=== PATIENT | female | born 1960 | race Caucasian/White ===

== ENCOUNTER 2016-09-07 07:40 | Inpatient (IN) ==
[~2016-09-07 07:40] MED LIST: ACETAMINOPHEN 500 MG TABLET PO ONE; CEFAZOLIN 1 G INJECTION IVP ONE; DEXAMETHASONE 4 MG/ML INJECTION IVP ONE; FAMOTIDINE PB 20 MG/50 ML BAG IV ONE; LIDOCAINE 1% (10mg/ml) 10mL MDV SQ ONE; MELOXICAM 15 MG TABLET PO ONE; METOCLOPRAMIDE 10mg/2ml INJECTION IVP ONE; NOZIN NASAL SWAB NAS ONE; ONDANSETRON 4 MG/2 ML INJECTION IVP ONE; TRANEXAMIC ACID 1,000 MG in NS 100 ML IV ONE; VANCOMYCIN 1,000 MG INJECTION ONE
[2016-09-07] MEDS ORDERED: EPINEPHrine 0.25 MG, BUPIVACAINE 0.25% PF 30 ML, MORPHINE SULFATE 15 MG, KETOROLAC INJ ... OPSITE ONE (08:00)
[2016-09-07] MEDS ORDERED: SALINE FLUSH 10ml SYRINGE IVF PRN (09:12)
[2016-09-07] MEDS ORDERED: LR 1,000 ML IV SCH (09:54)
[2016-09-07 10:56] VITALS: BMI 31.4
--- NOTE | 2016-09-07 12:24 | History & Physical Update ---
- History and Physical Update Date: 09/07/16 Update: I evaluated this patient and found no changes in the history and clinical exam findings. The treatment plan and recommendations are also unchanged from the previous documentation.
[2016-09-07] MEDS ORDERED: VANCOMYCIN 1,000 MG INJECTION ONE (12:46)
--- NOTE | 2016-09-07 12:50 | Anesthesia Preoperative Report ---
Anesthesia Preoperative Record - Date and Time Date: 09/07/16 Preoperative Diagnosis: Rt TKA Proposed Procedure: right knee arthroplasty NPO Since Date: 09/06/16 NPO Since Time: 23:00 Allergies/Adverse Reactions: Allergies Allergy/AdvReac Type Severity Reaction Status Date / Time No Known Allergies Allergy Unverified 08/09/16 11:08 - Vital Signs Vital Signs: Temperature 97.9 F 09/07/16 10:54 Pulse Rate 76 09/07/16 10:54 Respiratory Rate 15 09/07/16 10:54 Blood Pressure 134/62 09/07/16 12:01 Pulse Oximetry 96 09/07/16 10:54 Oxygen Delivery Method Room Air Height and Weight: Height 1.57 m Weight 78 kg Body Mass Index 31.4 - Medications Inpatient Medications: Current Medications Lactated Ringer's (Lactated Ringers) 1,000 mls @ 50 mls/hr IV .Q20H RICARDO Sodium Chloride (Iv Flush) 10 - 80 ml IVF PRN PRN PRN Reason: Flushing Home Medications: Home Medications Medication Instructions Recorded Confirmed Type Citalopram Hydrobromide [Celexa] 10 mg PO DAILY #0 tab 03/03/14 09/07/16 History hydrochlorothiazide 25 mg tablet 25 mg PO DAILY tab 08/09/16 09/07/16 History Multivit with Calcium,Iron,Min 1 each PO DAILY 08/10/16 09/07/16 History [Multiple Vitamins For Women] - Medical History Cardiovascular: Reports: Hypertension - Surgical History Musculoskeletal Surgery/Tx: Reports: Knee Arthroscopy (Rt) Reproductive Surgery/Treatment: Reports: Section (x3), Laparoscopy Anesthesia Reactions: None Hx Family Anesthesia Reaction: No - Social History Smoking Status: Former smoker - Pertinent Findings Laboratory: CBC and BMP 09/07/16 11:08 BMP 09/07/16 11:08 Sodium 143 Potassium 3.9 Chloride 107 Carbon Dioxide 27 BUN 18.0 H Creatinine 0.7 Glucose 85 Calcium 9.4 EKG Rhythm: Normal Sinus Rhythm - Physical Exam Respiratory Exam: Present: lungs clear, bilateral breath sounds equal Cardiovascular Exam: Present: regular rate and rhythm, no murmur - Airway Assessment Mallampati Score: I Teeth: upper dentures, lower dentures Overall Assessment: no airway concerns - ASA ASA Score: 2 - Plan Anesthesia: General Inhalation Gases Regional/Trunk Block: Spinal Peripheral Nerve Block: Saphenous-Right - Discussion Discussion: Discussed risks/options/alternatives of anesthesia and questions answered. Patient consents. Nursing pain assessment noted. Attestation Statement: Prior to the delivery of any anesthetic medication, I examined the patient, developed the plan, obtained the patient's consent and discussed the risk and benefits of the procedure with the patient/guardian.
[2016-09-07] MEDS ORDERED: FentaNYL 100 MCG/2 ML INJECTION ONE (13:29)
[2016-09-07] MEDS ORDERED: MIDAZOLAM 2mg/2ml INJECTION ONE (13:30)
[2016-09-07] MEDS ORDERED: VANCOMYCIN 1,000 MG INJECTION IAR ONE (13:46)
[2016-09-07] MEDS ORDERED: KETAMINE 500 MG/10 ML INJECTION ONE (14:28)
[2016-09-07] MEDS ORDERED: PROPOFOL 20 ML ONE (14:28)
[2016-09-07] MEDS ORDERED: ROPIVACAINE 0.5% (5mg/ml) 30ml INJ ONE (15:22)
--- NOTE | 2016-09-07 16:00 | Operative Note ---
- Procedure Date of Admission: 09/07/16 Side: right Preoperative Diagnosis: knee primary DJD Postoperative Diagnosis: Same as preoperative diagnosis. Operation: total knee arthroplasty Surgeon: Qamar Baum MD Roof Truss Machine Tender: MICHEL Austin Complications: None. Regional/Trunk Block: Spinal Peripheral Nerve Block: Saphenous-Right Estimated Blood Loss: See Anesthesia Record. Fluids: Please see Anesthesia Record. Description of Procedure: Mrs. Oliveira and the right knee were identified and marked in the preoperative holding area. She was brought back to the operating suite and placed supine on the operating table. Spinal anesthetic was administered. The operative lower extremity was prepped and draped in a sterile fashion. Timeout was performed. She had a fixed varus deformity with a 5 flexion contracture. An anterior midline incision followed by medial parapatellar arthrotomy was performed. The tourniquet was not used until cementing. Hemostasis was obtained with electrocautery. She complete loss of cartilage in the medial compartment and to a lesser degree underneath the patella. The patella was resurfaced to a size 32. A distal femoral osteotomy was then performed in 5 of valgus using intramedullary guide. The femur was sized at a for and rotation set using the epicondylar axis. Distal femoral cuts were performed with a 4-in-1 cutting block. A proximal tibial cut was then made perpendicular to its long axis using an extramedullary guide. At this point remaining meniscus and osteophytes were removed and joint cocktail was injected throughout soft tissue. Trial components were placed with a 9 mm spacer. This was a bit tight so to 2 mm off the tibial cut. This allowed for full extension and flexion and the patella tracked well. The leg was then exsanguinated and the tourniquet inflated to 250 mmHg. The tibia was then stamped at a size 3 at the proper rotation. The bone was then prepared for cementing and Vikas Triathalon components were cemented into place and allowed to cure in extension. The tourniquet was then let down and hemostasis obtained with electrocautery. Betadine solution was used during the curing period for 3 minutes. 1 g of vancomycin powder was placed into the joint before the capsulotomy was repaired with #1 Vicryl. I then left my environmental assistant close the subcutaneous tissue and skin with 2-0 Vicryl and Monocryl. Dermabond was used on the skin. The drapes were then removed and she was taken to recovery room under the care of anesthesia.
--- NOTE | 2016-09-07 16:35 | Anesthesia Postoperative Note ---
- Date and Time Date: 09/07/16 Time: 15:37 - Status Patient Participated in Evaluation: Patient Participated in Person Vital Signs: Temperature 97.9 F 09/07/16 10:54 Pulse Rate 76 09/07/16 10:54 Respiratory Rate 15 09/07/16 10:54 Blood Pressure 134/62 09/07/16 12:01 Pulse Oximetry 96 09/07/16 10:54 Oxygen Delivery Method Room Air Respiratory Function: Airway Patent Cardiovascular Function: Regular Pulse EKG Rhythm: Normal Sinus Rhythm Mental Status: Alert and Oriented Pain Intensity: 0 Hydration: IV Infusing Complications During Recover: None Apparent - Follow-Up Instructions Instructions: Per Surgeon
--- NOTE | 2016-09-07 16:37 | Anesthesia Procedure Note ---
Peripheral Nerve Blockade - Procedure Physician: Db Baum MD Date: 09/07/16 Surgical Procedure: right knee arthroplasty Discussion: Discussed risks/options/alternatives of anesthesia and questions answered. Patient consents. Nursing pain assessment noted. Block Start: 15:30 Block Stop: 15:33 Blocked Employed: Adductor Canal Indication: Post-Operative Pain Approach: Right Side Confirmed Position: Supine Patient: Consent, Risks/Benefits Discussed, Informed IV Sedation: No Initial Vital Signs: Temperature 97.9 F 09/07/16 10:54 Temperature Source Oral 09/07/16 10:54 Pulse Rate 76 09/07/16 10:54 Respiratory Rate 15 09/07/16 10:54 Blood Pressure 200/106 H 09/07/16 10:54 Blood Pressure Mean 137 09/07/16 10:54 Blood Pressure Position Sitting 09/07/16 10:54 Pulse Oximetry 96 09/07/16 10:54 Oxygen Delivery Method 09/07/16 10:54 Post Vital Signs: Temperature 97.9 F 09/07/16 10:54 Pulse Rate 76 09/07/16 10:54 Respiratory Rate 15 09/07/16 10:54 Blood Pressure 134/62 09/07/16 12:01 Pulse Oximetry 96 09/07/16 10:54 Oxygen Delivery Method Room Air Initial Pain Pain Score: 0 Post Block Pain Score: 0 Prep: Chlorhexadine/ETOH Ultrasound Used?: Yes - Injectate Ropivacaine (%): 0.5 Ropivacaine (mL): 20 Was Epi 1:200,000 Used?: No Injection: Injection made incrementally with constant monitoring and aspiration every ml
[2016-09-07] MEDS ORDERED: DiphenhydrAMINE 25 MG CAPSULE PO PRN (17:23)
[2016-09-07] MEDS ORDERED: DiphenhydrAMINE 50 MG/ML INJECTION IVP PRN (17:23)
[2016-09-07] MEDS ORDERED: LORazepam 1 MG TABLET PO PRN (17:23)
[2016-09-07] MEDS ORDERED: NOZIN NASAL SWAB NAS ONE (17:23)
[2016-09-07] MEDS ORDERED: ONDANSETRON 4 MG/2 ML INJECTION IVP PRN (17:23)
[2016-09-07] MEDS: NS 1,000 ML IV SCH (17:29)
[2016-09-07] MEDS: ACETAMINOPHEN 325 MG TABLET PO SCH ×2 (17:30→20:44)
[2016-09-07] MEDS: Oxycodone *IR* 5 MG TABLET PO PRN (20:44)
[2016-09-07] MEDS: ASPIRIN *EC* 325 MG TABLET PO SCH (20:45)
[2016-09-07] MEDS: DOCUSATE SODIUM 100 MG CAPSULE PO SCH (20:45)
[2016-09-07] MEDS: NOZIN NASAL SWAB NAS SCH (21:34)
[2016-09-07] MEDS: CEFAZOLIN 2 G in NS 100 ML IV SCH (21:35)
[2016-09-07] MEDS ORDERED: SENNOSIDES 8.6 MG TABLET PO SCH (22:00)
[2016-09-08] MEDS: Oxycodone *IR* 5 MG TABLET PO PRN ×4 (01:59→14:02)
[2016-09-08] MEDS: NOZIN NASAL SWAB NAS SCH (05:29)
[2016-09-08] MEDS: CEFAZOLIN 2 G in NS 100 ML IV SCH (05:29)
[2016-09-08] MEDS: NS 1,000 ML IV SCH (06:49)
--- NOTE | 2016-09-08 08:06 | Orthopedic Progress Note ---
Date: Subjective/Severity of Illness: Sweta is doing well. She has been up short distances with good tolerance. She developed some right sided chest pain in the upper sub-clavicular region that began while using her IS yesterday. The pain is only on deep breathing. Denies feeling SOA. It is not painful any time except when using the IS. She had a small cough this AM but thought it was from using a fan at night and just getting up. Reports having some thigh pain but not much knee pain. No calf pain. Orthopedic Objective PO Vital signs: Temperature 97.5 F 09/08/16 07:32 Pulse Rate 71 09/08/16 07:32 Respiratory Rate 16 09/08/16 07:32 Blood Pressure 143/87 H 09/08/16 07:32 Pulse Oximetry 98 09/08/16 07:32 Oxygen Delivery Method Room Air Height and Weight: Height 5 ft 2 in Weight 181 lb 14.102 oz Body Mass Index 31.4 - Constitutional General Appearance: Present: alert, cooperative, no acute distress - Respiratory Exam Present: non-labored - Extremities Exam Extremities: Present: pulses intact. Absent: calf tenderness, Ruben's sign - Surgical Site Incision: Mepilex dressing intact, no drainage - Integumentary Exam Present: pink, warm, dry - Neurological Exam Present: no deficits - Psychiatric Exam Present: alert, normal affect - Labs Result Diagrams: 09/08/16 04:12 09/08/16 04:12 Abnormal lab results 09/07/16 09/08/16 09/08/16 Range/Units 11:08 04:12 04:12 WBC 15.4 H (4.5-11.0) T/MM3 MPV 12.5 H (9.4-12.4) UM3 BUN 18.0 H 19.0 H (7-17) MG/DL Glucose 114 H (65-110) MG/DL H & H 09/08/16 Range/Units 04:12 Hgb 13.4 (12-16) GM/DL Hct 40.7 (36-46) % Orthopedic Assessment and Plan (1) Primary osteoarthritis of right knee Status: Acute Assessment and Plan: VSS , Sats good on RA. Not Tachy. Will monitor sx for now. Leukocytosis likely due to steroids IV and stress response. Afebrile and no s/ sx of infection. Aspirin and SCDs for DVT coverage. Mobilize with PT / OT. CM for discharge planning. Hospital Course Summary Disclaimer: The visit summary below is not to be considered part of the above Progress Note.
[2016-09-08] MEDS: DOCUSATE SODIUM 100 MG CAPSULE PO SCH (08:22)
[2016-09-08] MEDS: ASPIRIN *EC* 325 MG TABLET PO SCH (08:22)
[2016-09-08] MEDS: ACETAMINOPHEN 325 MG TABLET PO SCH ×2 (08:22→12:48)
--- NOTE | 2016-09-08 08:43 | Discharge Summary ---
Orthopedic Discharge Info Date of admission: 09/07/16 10:34 Anticipated date of discharge: 09/08/16 Primary care physician: Keeley Victor DO Attending Physician: Db Baum MD Consults: 09/07/16 10:37 Consult to Anesthesiology [CONS] Routine Consulting Provider: MICHEL Rosas Reason For Exam: Preoperative Assessment 09/07/16 17:23 Case Management Consult [CONS] Routine Reason For Exam: Discharge Planning DME-Walker [CONS] Routine Height: 5 ft 2 in Weight: 171 lb 15.369 oz Comment: change dressing in 2 weeks Total Joint Outpatient Therapy [CONS] Routine Comment: change dressing in 2 weeks - Discharge Diagnosis (1) Primary osteoarthritis of right knee Status: Acute - Procedures Procedures: Rt TKA 09/07/16 - Laboratory Result Diagrams: 09/08/16 04:12 09/08/16 04:12 Laboratory: Abnormal lab results 09/07/16 09/08/16 09/08/16 Range/Units 11:08 04:12 04:12 WBC 15.4 H (4.5-11.0) T/MM3 MPV 12.5 H (9.4-12.4) UM3 BUN 18.0 H 19.0 H (7-17) MG/DL Glucose 114 H (65-110) MG/DL H & H 09/08/16 Range/Units 04:12 Hgb 13.4 (12-16) GM/DL Hct 40.7 (36-46) % Orthopedic Discharge HPI - HPI Comments This patient was admitted for elective surgical tx of end stage degenerative joint disease that failed to respond to conservative treatment. Further details of this is found in the admission H&P. Orthopedic Hospital Course Hospital course: 09/08/16 08:40 After appropriate preoperative clearance and signing of operative consent, the patient was given IV antibiotics, according to orthopedic protocol. The patient was taken to the operating room and underwent elective rt total knee arthroplasty. Following surgery, antibiotics were discontinued less than 24 hours according to joint protocol. Aspirin was initiated and SCDs added for DVT prevention. The dressing was clean, dry, and intact. Pain control was obtained via multimodal approach. Bowel motivation addressed with scheduled and PRN medications. Early mobilization was initiated through PT services. Discharge arrangements made by a collaborative effort between the patient and Case Management. Follow-up is scheduled in 2-3 weeks. Discharge instructions given by orthopedic providers and nursing staff at discharge. Discharge condition was good. Ongoing care required?: No Discharge Plan - Med Rec/Dispo Referrals/Follow Up: Db Baum MD [Physician] - 09/29/16 10:00 am Prescriptions: New Acetaminophen [Tylenol] 650 mg PO QID tablet Aspirin *EC* [Ecotrin] 325 mg PO BID #84 tablet Docusate Sodium [Colace] 100 mg PO BID capsule Milk of Magnesia [Mom] 30 ml PO DAILY udc Oxycodone *Ir* [Roxicodone *Ir*] 5 - 15 mg PO Q3H PRN #60 tablet PRN Reason: Breakthrough Pain PEG 3350 17gm PACKET [Miralax] 17 gm PO DAILY packet HydroCHLOROthiazide [Hydrodiuril] 25 mg PO WB tablet Continue Citalopram Hydrobromide [Celexa] 10 mg PO DAILY #0 tab Meloxicam 15 mg PO DAILY #20 tab Multivit with Calcium,Iron,Min [Multiple Vitamins For Women] 1 each PO DAILY hydrochlorothiazide 25 mg tablet 25 mg PO DAILY #1 tab - Disposition 01 Discharged Home, Self-Care
--- NOTE | 2016-09-08 08:46 | XRay Report ---
Indication: postoperative image PROCEDURE: XR knee RT 2V: Encounter: Initial Comparison: None Findings: Postoperative changes of right total knee replacement are seen. There is expected postoperative subcutaneous gas. No evidence of hardware failure or acute fracture. No retained radiopaque surgical instruments or sponges. Overlying material causing artifact. Impression: New right total knee prosthesis without evidence of immediate complication. .
[2016-09-08] MEDS ORDERED: CITALOPRAM 10 MG TABLET PO SCH (09:00)
[2016-09-08] MEDS ORDERED: POLYETHYL GLYCOL 3350 17gm PACKET PO SCH (09:00)
[2016-09-08] MEDS ORDERED: MELOXICAM 15 MG TABLET PO SCH (09:00)
[2016-09-08 12:51] VITALS: BP 140/89; PULSE 75; RESP 18; TEMP 97.7; O2SAT 95
[2016-09-08] MEDS ORDERED: SENNOSIDES 8.6 MG TABLET PO PRN (16:21)
[2016-09-09] MEDS ORDERED: BISACODYL 10 MG SUPPOSITORY RECTALLY SCH (20:00)
[2016-09-10] MEDS ORDERED: LR 1,000 ML IV SCH ×2 (07:52→12:23)
== END 2016-09-08 14:02 | disposition home or self-care (01) | DRG 470 ==
LOC: SRG 10:34
PROVIDERS: ADMIT Orthopaedic Surgery; ATTEND Orthopaedic Surgery